=== PATIENT | female | born 1960 | race Caucasian/White ===

== ENCOUNTER 2016-09-21 04:17 | Emergency (ER) | payer OTHER ==
[2016-09-21 06:38] LABS: HEMOGLOBIN 13.7 gm/dl (12.3-15.3); RED BLOOD COUNT 4.66 M/UL (4.00-5.10); WHITE BLOOD COUNT 7.8 K/UL (4.5-11.0)
[2016-09-21 07:03] LABS: BUN/CREATININE RATIO 16 (0-10)
== END 2016-09-21 10:26 | disposition home or self-care (01) ==
LOC: ER1 04:17
PROVIDERS: Physician Assistant
DX: N39.0 Urinary tract infection, site not specified (principal); F32.9 Major depressive disorder, single episode, unspecified; Z79.899 Other long term (current) drug therapy; Z87.891 Personal history of nicotine dependence; Z88.1 Allergy status to other antibiotic agents; Z88.2 Allergy status to sulfonamides; Z88.5 Allergy status to narcotic agent
CPT/HCPCS: 36415; 80053; 81001; 83605; 83690; 85025; 87040; 87077; 87086; 87186; 96361; 96365; 99283; J0696; J7050

== ENCOUNTER 2017-02-06 10:15 | Emergency (ER) | payer OTHER | END 2017-02-06 14:48 | disposition home or self-care (01) | LOC: ER1 10:15 | DX: S39.012A Strain of muscle, fascia and tendon of lower back, initial encounter (principal); S29.012A Strain of muscle and tendon of back wall of thorax, initial encounter; S70.01XA Contusion of right hip, initial encounter; Z88.2 Allergy status to sulfonamides; W01.0XXA Fall on same level from slipping, tripping and stumbling without subsequent striking against object, initial encounter; Y92.009 Unspecified place in unspecified non-institutional (private) residence as the place of occurrence of the external cause | CPT/HCPCS: 72072; 72131; 73502; 96372; 99283; J1885 ==

== ENCOUNTER → 2020-05-30 | Outpatient (CLI) | payer MEDICARE, OTHER ==
[~2020-05-30] MED LIST: ALBUTEROL2.5 MG/3 M INH; ALEVE220 MG PO; DOXYCYCLINE HY100 MG PO; FIBERCON625 MG PO; KLONOPIN TAB 00.5 MG PO; LEVAQUIN500 MG PO; MEDROL4 MG PO; NORCO 5-325 TA1 EACH PO; PROVENTIL HFA6.7 GM INH; SYMBICORT; TENORMIN 25 MG25 MG PO; TESSALON PERLE100 MG PO; TYLENOL 500 MG500 MG PO; Voltaren Gel 1 % TOP; ZOLOFT100 MG PO; ZYRTEC10 MG PO
== END ==
LOC: KOH-I 11:38
DX: S92.331A Displaced fracture of third metatarsal bone, right foot, initial encounter for closed fracture (principal); S92.324A Nondisplaced fracture of second metatarsal bone, right foot, initial encounter for closed fracture; X58.XXXA Exposure to other specified factors, initial encounter
CPT/HCPCS: 73630

== ENCOUNTER → 2020-11-08 | Outpatient (CLI) | payer MEDICARE, OTHER | LOC: KOH-I 11:46 | DX: S92.331D Displaced fracture of third metatarsal bone, right foot, subsequent encounter for fracture with routine healing (principal); S92.321A Displaced fracture of second metatarsal bone, right foot, initial encounter for closed fracture | CPT/HCPCS: 73630 ==

== ENCOUNTER → 2020-12-15 | Outpatient (CLI) | payer MEDICARE | LOC: HEART 5 08:09 | DX: I51.7 Cardiomegaly (principal); B94.8 Sequelae of other specified infectious and parasitic diseases; R06.02 Shortness of breath; I25.10 Atherosclerotic heart disease of native coronary artery without angina pectoris | CPT/HCPCS: 78452; 93306; A9502; J2785 ==

== ENCOUNTER → 2020-12-20 | Outpatient (CLI) | payer MEDICARE | LOC: KOH-I 10:54 | DX: S92.331A Displaced fracture of third metatarsal bone, right foot, initial encounter for closed fracture (principal); S92.321A Displaced fracture of second metatarsal bone, right foot, initial encounter for closed fracture | CPT/HCPCS: 73630 ==

== ENCOUNTER → 2021-09-21 | Outpatient (CLI) | payer MEDICARE | LOC: RT 16:01 | DX: G47.34 Idiopathic sleep related nonobstructive alveolar hypoventilation (principal) | CPT/HCPCS: 36600; 82803 ==